=== PATIENT | male | born 1985 ===

== ENCOUNTER 2017-06-02 05:57 | Emergency (ER) | payer SELFPAY ==
[~2017-06-02] VITALS: Ht 198.1 cm; Wt 146.0 kg
[2017-06-02 06:06] VITALS: Ht 198.1 cm; Wt 146.0 kg
[2017-06-02] MEDS ORDERED: LIDOCAINE 1% (MDV) 20 ML INJ SC ONE (06:30)
[2017-06-02] MEDS ORDERED: CEFTRIAXONE 250 MG INJ IM ONE (06:30)
[2017-06-02 06:35] LABS: URINE BLOOD (Dip) POC Trace-lysed (NEGATIVE)
[2017-06-02] MEDS: AZITHROMYCIN 250 MG TAB PO ONE ×2 (06:47→06:59)
--- NOTE | 2017-06-02 07:06 | ERD ---
ER Documentation Chief Complaint Date/Time DATE: 06/02/17 TIME: 06:59 Chief Complaint discharge and bumps on penis x 1week. denies urinary symptoms HPI 32 yr old male complaining of dysuria and "bumps" on penis x 2 days. Patient had unprotected sex and is concerned about possible STD. Had STD at 13 yrs old but does not recall the name of it. No back pain. no fevers. No hematuria. No testicular pain. No vomiting. No abdominal pain ROS All systems reviewed and are negative except as per history of present illness. Allergies Allergies: Coded Allergies: No Known Allergy (Unverified , 06/02/17) PMhx/Soc Hx Respiratory Disorders: Yes (asthma) Hx Cardiac Disorders: Yes (heart murmur) Hx Miscellaneous Medical Probl: Yes (cataracts) Hx Alcohol Use: Yes Hx Substance Use: Yes (Meth) Hx Tobacco Use: Yes Smoking Status: Current every day smoker Physical Exam Vitals Vital Signs Date Time Temp Pulse Resp B/P Pulse Ox O2 Delivery O2 Flow Rate FiO2 06/02/17 06:06 98.2 74 18 159/87 100 Physical Exam GENERAL: The patient is well-appearing, well-nourished, in no acute distress CHEST: Clear to auscultation bilaterally. There are no rales, wheezes or rhonchi. HEART: Regular rate and rhythm. No murmurs, clicks, rubs or gallops. No S3 or S4. ABDOMEN:Soft, nontender and nondistended. Good bowel sounds. No rebound or guarding. No gross peritonitis. No gross organomegaly or masses. No Flannery sign or McBurney point tenderness. BACK: No midline or flank tenderness. : Circumsized, no open lesions or masses. No testicular swelling or masses. No tenderness to palpation Results 24 hrs Laboratory Tests Test 06/02/17 06:43 Bedside Urine pH (LAB) 5.5 Bedside Urine Protein (LAB) Trace Bedside Urine Glucose (UA) Negative Bedside Urine Ketones (LAB) Negative Bedside Urine Blood Trace-lysed Bedside Urine Nitrite (LAB) Negative Bedside Urine Leukocyte Esterase (L Negative Current Medications Medications (Trade) Dose Ordered Sig/Samara Route PRN Reason Start Time Stop Time Status Last Admin Dose Admin Azithromycin (Zithromax) 1,000 mg ONCE ONCE PO 06/02/17 06:30 10/11/17 06:31 DC 06/02/17 06:47 Ceftriaxone Sodium (Rocephin) 250 mg ONCE ONCE IM 06/02/17 06:30 10 06:31 DC Lidocaine (Xylocaine 1% (Mdv) 20 ml) 20 ml ONCE ONCE SC 06/02/17 06:30 10 06:31 DC Procedures/MDM ER Course: Urine sent for GC/Chlamydia screening. Attempted to give patient prophylactic rocephin and azithromycin but patient refused. Patient understood risks of not treating for possible STD. MDM: 32 yr old male complaining of possible STD exposure. Patient declined medication in ED today. I have low suspicion for UTI or pyelo. Patient's urine is within normal limits. I have low suspicion for sepsis as patient's exam is non concerning and patient is non toxic appearing. Vitals are stable. Patient is told to follow up with PMD in 1-2 days. Patient will be contacted if STD screening is positive. All questions answered at discharge. Patient is discharged with strict ER precautions. Departure Diagnosis: Primary Impression: Possible exposure to STD Condition: Stable Patient Instructions: Understanding STDs Referrals: [facility] YOU HAVE RECEIVED A MEDICAL SCREENING EXAM AND THE RESULTS INDICATE THAT YOU DO NOT HAVE A CONDITION THAT REQUIRES URGENT TREATMENT IN THE EMERGENCY DEPARTMENT. FURTHER EVALUATION AND TREATMENT OF YOUR CONDITION CAN WAIT UNTIL YOU ARE SEEN IN YOUR DOCTORS OFFICE WITHIN THE NEXT 1-2 DAYS. IT IS YOUR RESPONSIBILITY TO MAKE AN APPOINTMENT FOR FOLOW-UP CARE. IF YOU HAVE A PRIMARY DOCTOR --you should call your primary doctor and schedule an appointment IF YOU DO NOT HAVE A PRIMARY DOCTOR YOU CAN CALL OUR PHYSICIAN REFERRAL HOTLINE AT IF YOU CAN NOT AFFORD TO SEE A PHYSICIAN YOU CAN CHOSE FROM THE FOLLOWING FORMERLY [facility] [id number] [facility] [address] [facility] [facility] [address] [facility] [address] [facility] [address] [facility]. [facility]. [address] Additional Instructions: FOLLOW UP WITH YOUR PRIMARY CARE PHYSICIAN TOMORROW.Return to this facility if you are not improving as expected. RAMY LANG PA-C Jun 02, 2017 07:06
== END 2017-06-02 07:00 | disposition home or self-care (01) ==
LOC: FTE 05:57
DX: R30.0 Dysuria (principal); J45.909 Unspecified asthma, uncomplicated; F17.210 Nicotine dependence, cigarettes, uncomplicated; Z20.2 Contact with and (suspected) exposure to infections with a predominantly sexual mode of transmission
CPT/HCPCS: 81003; 87591; 99283; J0696